=== PATIENT | female | born 1975 | race Two or more races ===

== ENCOUNTER 2021-06-17 01:59 | Emergency (ER) | payer SELFPAY ==
[~2021-06-17] VITALS: Ht 152.4 cm; Wt 105.0 kg
[2021-06-17 03:11] LABS: BASOPHILS % 0.5 % (0.0-2.0); EOSINOPHILS % 1.7 % (0.0-5.0); HEMATOCRIT. 39.9 % (36.0-48.0); HEMOGLOBIN. 13.5 g/dL (12.0-16.0); LYMPHOCYTES % 25.9 % (20.0-50.0); MEAN CORPUSCULAR HEMOGLOBIN 28.6 pg (28.0-32.0); MEAN CORPUSCULAR VOLUME 84.7 fL (81.0-99.0); MEAN PLATELET VOLUME 8.7 fl (7.4-10.4); MONOCYTES % 5.9 % (2.0-8.0); PLATELET 350 x1000/uL (130-400); RED BLOOD CELL COUNT 4.72 mill/uL (4.2-5.4); RED CELL DISTRIBUTION WIDTH 13.8 % (11.6-14.6)
[2021-06-17 03:21] LABS: CHLORIDE 106 mEq/L (98-107)
[2021-06-17 03:30] VITALS: BP 107/43
[2021-06-17] MEDS ORDERED: DOXY100C5 MT (04:04)
[2021-06-17] MEDS ORDERED: DOXYCYCLINE HYCLATE 100MG CAPSULE PO ONE (04:15)
== END 2021-06-17 04:39 | disposition home or self-care (01) ==
LOC: ER 01:59
DX: J18.9 Pneumonia, unspecified organism (principal); F17.200 Nicotine dependence, unspecified, uncomplicated; E11.9 Type 2 diabetes mellitus without complications; Z98.890 Other specified postprocedural states
CPT/HCPCS: 36415; 71045; 80053; 83880; 84484; 85025; 93005; 99285